=== PATIENT | female | born 1995 | race Hispanic/Latino ===

== ENCOUNTER 2020-08-20 21:21 | Emergency (ER) | payer OTHER ==
[2020-08-20 21:59] LABS: HEMATOCRIT 41.7 % (37.0-47.0); HEMOGLOBIN 14.2 g/dl (12.0-16.0); IMMATURE GRANULOCYTES 0.4 % (0.0-5.0); MEAN CELL VOLUME 91.9 fL CALC (80.0-100.0); MEAN CORPUSCULAR HGB 31.3 pG CALC (26.0-32.0); MEAN CORPUSCULAR HGB CONC 34.1 g/dL CAL (32.0-36.0); NEUT# 5.63 thou/uL (2.00-7.15); RED BLOOD COUNT 4.54 mill/uL (4.20-5.60); RED CELL DISTRI WIDTH 11.9 % (11.5-15.5)
[2020-08-20 22:10] LABS: ALBUMIN 4.9 g/dL (3.2-5.0); ALKALINE PHOSPHATASE 72 u/l (38-126); ANION GAP 11 (6-22 (CALC)); BILIRUBIN, TOTAL 0.9 mg/dL (0.0-1.4); BUN 14 mg/dL (7-17); BUN/CREATININE RATIO 22 (12-20 (CALC)); CARBON DIOXIDE 26 mmol/l (22-30); CHLORIDE 102 mmol/l (95-108); CREATININE 0.6 mg/dL (0.5-1.0); GFR > 60 ML/MIN (>=60 (CALC)); GFR FOR AFR.AMER. > 60 ML/MIN (>=60 (CALC)); POTASSIUM 3.8 mmol/l (3.5-5.1); SGOT/AST 24 u/l (14-36); SODIUM 136 mmol/l (137-146); TOTAL PROTEIN 8.5 g/dL (6.3-8.2)
[2020-08-20 22:19] LABS: ACT PARTIAL THROMBO TIME 23.4 SECONDS (20.0-32.5); INTERNATIONAL NORMALIZED RATIO 1.1 RATIO (0.7-1.3); PROTHROMBIN TIME 10.9 SECONDS (9.0-12.5)
[2020-08-20 22:21] LABS: MYOGLOBIN 21 ng/mL (0 - 62)
[2020-08-20 22:30] LABS: D-DIMER 0.3 mg/L (0.19-0.60)
[2020-08-21 00:48] LABS: URINE BILIRUBIN - DIPSTICK NEGATIVE (NEGATIVE); URINE BLOOD DIPSTICK NEGATIVE (NEGATIVE); URINE COLOR YELLOW; URINE GLUCOSE - DIPSTICK NEGATIVE (NEGATIVE); URINE KETONE 15 mg/dL (NEGATIVE); URINE LEUK ESTERASE NEGATIVE (NEGATIVE); URINE PROTEIN - DIPSTICK NEGATIVE (NEG-TRACE); URINE SPECIFIC GRAVITY 1.015; URINE UROBILINOGEN - DIPSTICK 0.2 E.U./dL (0.2)
[2020-08-21 00:49] LABS: URINE NITRITE - DIPSTICK NEGATIVE (Negative)
[2020-08-21 01:08] VITALS: BP 98/64
== END 2020-08-21 01:08 | disposition home or self-care (01) | DRG 312 ==
LOC: ED 21:21
PROVIDERS: Family Medicine
DX: R55 Syncope and collapse (principal); F41.9 Anxiety disorder, unspecified; Z20.822 Contact with and (suspected) exposure to COVID-19